=== PATIENT | female | born 1970 | race Caucasian/White ===

== ENCOUNTER → 2018-10-04 | Outpatient (CLI) | payer OTHER ==
[~2018-10-04] MED LIST: DICL75TA2 PO; OMEP40CA6 PO; TRAZ50TA66 PO
[2018-10-04 12:32] LABS: BASOPHILS % (AUTO) 1 % (0-1); EOSINOPHILS % (AUTO) 5 % (1-7); LYMPHOCYTES # (AUTO) 3.23 x10^3/uL (1-3.4); LYMPHOCYTES % (AUTO) 29 % (22-44); MD NO; MEAN CORPUSCULAR HEMOGLOBIN 27.6 pg (27.0-34.8); MEAN CORPUSCULAR HGB CONC 33.1 g/dL (32.4-35.8); MEAN CORPUSCULAR VOLUME 83.3 fL (80-100); MONOCYTES # (AUTO) 0.65 x10^3/uL (0.2-0.8); MONOCYTES % (AUTO) 6 % (2-9); NEUTROPHILS # (AUTO) 6.53 x10^3/uL (1.8-6.8); NEUTROPHILS % (AUTO) 59 % (42-75); PLATELET COUNT 264 x10^3/uL (130-400); RED BLOOD COUNT 5.29 x10^6/uL (3.82-5.3); RED CELL DISTRIBUTION WIDTH 16.2 % (9.6-15.2)
[2018-10-04 12:36] LABS: ANION GAP 6 mmol/L (5-15); CALCIUM 8.5 mg/dL (8.5-10.1); CHLORIDE 107 mmol/L (98-107); CREATININE 0.71 mg/dL (0.55-1.02)
[2018-10-04 13:12] LABS: HEMOGLOBIN A1C 5.8 % (4.2-6.3)
[2018-10-04 13:21] LABS: INTERNATIONAL NORMALIZED RATIO 0.99 (0.93-1.1); PROTHROMBIN TIME 10.5 Seconds (9.6-11.5)
== END | disposition home or self-care (01) ==
LOC: STAR 11:18
PROVIDERS: ATTEND Orthopaedic Surgery
DX: M17.12 Unilateral primary osteoarthritis, left knee (principal); Z47.1 Aftercare following joint replacement surgery
CPT/HCPCS: 36415; 80048; 83036; 85025; 85610; 85730; 87081

== ENCOUNTER 2018-10-13 10:12 | Inpatient (IN) | payer OTHER ==
[~2018-10-13] VITALS: Ht 160 cm; Wt 125.0 kg
[2018-10-13] MEDS: NS + 20MEQ KCL 1,000 ML IV SCH ×2 (06:35→22:00)
[2018-10-13] MEDS: CEFAZOLIN PMX 2GM/50ML 50 ML IVPB SCH ×2 (07:00→15:00)
[2018-10-13] MEDS: OMEPRAZOLE 20 MG CAPSULE.DR PO SCH ×2 (09:00→21:00)
[2018-10-13] MEDS: DOCUSATE 100 MG CAPSULE PO SCH ×2 (09:00→21:00)
[~2018-10-13 10:12] MED LIST changes: +ACETAMINOPHEN 650 MG/20.3 ML UDC PO PRN; +BISACODYL 10 MG SUPP PR PRN; -DICL75TA2 PO; +DICL75TA3 PO; +DIPHENHYDRAMINE 25 MG CAPSULE PO PRN; +HYDROcodone/APAP 5/325 TABLET PO PRN; +HYDROmorphone 2 MG/ML, 1ML IV PRN; +MAGNESIUM HYDROXIDE 8%, 30ML UDC PO PRN; +ONDANSETRON 2MG/ML, 2ML IV PRN; +ONDANSETRON 4 MG TABLET PO PRN; +SCOPOLAMINE PATCH, 1.5MG PATCH.TD72 TD ONE; +SENNA/DOCUSATE TABLET PO PRN; +ZOLPIDEM 5MG TABLET PO PRN
[2018-10-13] MEDS ORDERED: MIDAZOLAM 1 MG/ML, 2ML ONE (10:19)
[2018-10-13] MEDS ORDERED: FENTANYL PF 250 MCG/5ML ONE (10:19)
[2018-10-13] MEDS ORDERED: LACTATED RINGERS 1,000 ML IV SCH (10:22)
[2018-10-13] MEDS ORDERED: DEXAMETHASONE 4 MG/ML, 1ML ONE (10:23)
[2018-10-13] MEDS ORDERED: NEOSTIGMINE 1 MG/ML, 10ML ONE (10:23)
[2018-10-13] MEDS ORDERED: GLYCOPYRROLATE 0.2MG/1ML, 5ML ONE (10:23)
[2018-10-13] MEDS ORDERED: PROPOFOL 10 MG/ML, 20ML ONE (10:23)
[2018-10-13] MEDS ORDERED: ROCURONIUM 10MG/ML,5ML ONE (10:23)
[2018-10-13] MEDS ORDERED: CEFAZOLIN 1,000 MG ONE ×2 (10:23→11:47)
[2018-10-13] MEDS ORDERED: ONDANSETRON 2MG/ML, 2ML ONE (10:23)
[2018-10-13] MEDS ORDERED: ACETAMINOPHEN 500 MG TABLET PO ONE (11:00)
[2018-10-13] MEDS ORDERED: GABAPENTIN 300 MG CAPSULE PO ONE (11:00)
[2018-10-13] MEDS ORDERED: KETOROLAC 60 MG/2 ML ONE (11:06)
[2018-10-13] MEDS ORDERED: TRANEXAMIC ACID 100 MG/ML, 10ML ONE ×3 (11:06→12:06)
[2018-10-13] MEDS ORDERED: SODIUM CHLORIDE 0.9% 100 ML ONE (11:06)
[2018-10-13] MEDS ORDERED: ROPIvacaine/PF 0.5%, 30 ML ONE ×2 (11:06→11:37)
[2018-10-13] MEDS ORDERED: VANCOMYCIN 1,000 MG ONE (11:06)
[2018-10-13] MEDS ORDERED: EPINEPHRINE 1 MG/ML, 1ML ONE (11:07)
[2018-10-13 11:22] VITALS: BP 136/81
[2018-10-13] MEDS ORDERED: SCOPOLAMINE PATCH, 1.5MG PATCH.TD72 TD ONE ×2 (11:30)
[2018-10-13] MEDS: OXYcodone IR 5MG TABLET PO PRN ×2 (11:30→23:30)
[2018-10-13] MEDS ORDERED: hydrALAzine 20 MG/ML, 1ML ONE (11:47)
[2018-10-13] MEDS ORDERED: OXYcodone 5 MG/5 ML ORAL.SOL UDC PO PRN (12:00)
[2018-10-13] MEDS ORDERED: HYDROmorphone 2 MG/ML, 1ML IVPush PRN (12:00)
[2018-10-13] MEDS ORDERED: ONDANSETRON 2MG/ML, 2ML IV PRN (12:00)
[2018-10-13] MEDS ORDERED: MEPERIDINE/PF 25MG/0.5ML IVPush PRN (12:00)
[2018-10-13] MEDS ORDERED: ONDANSETRON ODT 8 MG PO PRN (12:00)
[2018-10-13] MEDS ORDERED: LABETALOL 5MG/ML, 20ML IV PRN (12:00)
[2018-10-13] MEDS ORDERED: PROMETHAZINE 12.5 MG SUPP PR PRN (12:00)
[2018-10-13] MEDS ORDERED: PROMETHAZINE 25 MG SUPP PR PRN (12:00)
[2018-10-13] MEDS ORDERED: PROMETHAZINE 25 MG/ML, 1ML IM PRN ×2 (12:00)
[2018-10-13] MEDS ORDERED: PROMETHAZINE 25 MG/ML, 1ML IV PRN (12:00)
[2018-10-13] MEDS ORDERED: MORPHINE SULFATE 4 MG/ML, 1ML IVPush PRN (12:00)
[2018-10-13] MEDS ORDERED: hydrALAzine 20 MG/ML, 1ML IV PRN (12:00)
[2018-10-13] MEDS ORDERED: FENTANYL PF 100 MCG/2ML ONE ×2 (12:20→13:55)
[2018-10-13] MEDS ORDERED: ALBUTEROL HFA 90 MCG/SPRAY ONE (12:54)
[2018-10-13] MEDS ORDERED: PROMETHAZINE 25 MG/ML, 1ML ONE (13:20)
[2018-10-13] MEDS ORDERED: HALOPERIDOL 5 MG/ML ONE (13:34)
[2018-10-13] MEDS: HALOPERIDOL 5 MG/ML IV PRN ×2 (13:35→15:36)
[2018-10-13] MEDS: FENTANYL PF 100 MCG/2ML IV PRN ×4 (14:00→15:36)
[2018-10-13 17:00] VITALS: BP 136/75
[2018-10-13] MEDS: ASPIRIN 81 MG TABLET EC PO SCH (17:59)
[2018-10-13 19:31] VITALS: BP 124/75
[2018-10-13] MEDS ORDERED: TRAZODONE 50MG TABLET PO SCH (21:00)
[2018-10-14 01:30] VITALS: BP 101/63
[2018-10-14] MEDS: ASPIRIN 81 MG TABLET EC PO SCH (06:00)
[2018-10-14] MEDS ORDERED: DEXAMETHASONE 4 MG/ML, 1ML IVPush SCH (06:00)
[2018-10-14 08:32] VITALS: BP 119/72
[2018-10-14] MEDS: OMEPRAZOLE 20 MG CAPSULE.DR PO SCH (09:22)
[2018-10-14] MEDS: DOCUSATE 100 MG CAPSULE PO SCH (09:22)
[2018-10-14] MEDS: OXYcodone IR 5MG TABLET PO PRN (09:22)
[2018-10-14] MEDS ORDERED: OXYC5TAB2 PO (09:58)
[2018-10-14] MEDS ORDERED: ONDA4TAB7 PO (10:00)
[2018-10-14] MEDS ORDERED: MELO7.5T31 PO (10:00)
== END 2018-10-14 11:00 | disposition home or self-care (01) | DRG 470 ==
LOC: OUT 10:12 → 4NOR 15:07 → OUT 22:57 → 4NOR 22:57
PROVIDERS: ADMIT Orthopaedic Surgery; ATTEND Orthopaedic Surgery
PROC: 3E0T3BZ Introduction of Anesthetic Agent into Peripheral Nerves and Plexi, Percutaneous Approach (ICD-10-PCS; 2018-10-13)
PROC: 0SRD069 Replacement of Left Knee Joint with Oxidized Zirconium on Polyethylene Synthetic Substitute, Cemented, Open Approach (ICD-10-PCS; principal; 2018-10-13 13:00)
DX: M17.12 Unilateral primary osteoarthritis, left knee (principal); Z68.42 Body mass index [BMI] 45.0-49.9, adult; K21.9 Gastro-esophageal reflux disease without esophagitis; E66.01 Morbid (severe) obesity due to excess calories; Z88.2 Allergy status to sulfonamides
CPT/HCPCS: 36415; J3490; 85014; 85018; C1713; G0378; J0171; J0690; J1100; J1170; J1885; J2250; J2405; J2550; J2704; J2710; J2795; J3010; J3370; C1776; J0360; J1630; J7120

== ENCOUNTER → 2018-11-02 | Outpatient (CLI) | payer OTHER ==
[~2018-11-02] MED LIST changes: -ACETAMINOPHEN 650 MG/20.3 ML UDC PO PRN; -BISACODYL 10 MG SUPP PR PRN; -DIPHENHYDRAMINE 25 MG CAPSULE PO PRN; -HYDROcodone/APAP 5/325 TABLET PO PRN; -HYDROmorphone 2 MG/ML, 1ML IV PRN; -MAGNESIUM HYDROXIDE 8%, 30ML UDC PO PRN; +MELO7.5T31 PO; +ONDA4TAB7 PO; -ONDANSETRON 2MG/ML, 2ML IV PRN; -ONDANSETRON 4 MG TABLET PO PRN; +OXYC5TAB2 PO; -SCOPOLAMINE PATCH, 1.5MG PATCH.TD72 TD ONE; -SENNA/DOCUSATE TABLET PO PRN; -ZOLPIDEM 5MG TABLET PO PRN
== END | disposition home or self-care (01) ==
LOC: RAD 15:29
PROVIDERS: ATTEND Orthopaedic Surgery
DX: M79.89 Other specified soft tissue disorders (principal); M79.662 Pain in left lower leg; Z96.652 Presence of left artificial knee joint

== ENCOUNTER 2018-12-24 11:29 | Emergency (ER) | payer OTHER ==
[~2018-12-24] VITALS: Ht 160 cm; Wt 123.8 kg
--- NOTE | 2018-12-24 11:32 | NUR ---
PT IN RESTROOM.
[2018-12-24] MEDS ORDERED: ONDANSETRON 2MG/ML, 2ML IVPush ONE (12:00)
[2018-12-24] MEDS ORDERED: MORPHINE SULFATE 4 MG/ML, 1ML IVPush PRN (12:00)
[2018-12-24] MEDS ORDERED: SODIUM CHLORIDE FLUSH 10ML SYR IVF ONE (12:00)
[2018-12-24] MEDS ORDERED: MORPHINE SULFATE 4 MG/ML, 1ML ONE (12:10)
[2018-12-24] MEDS ORDERED: ONDANSETRON 2MG/ML, 2ML ONE (12:10)
[2018-12-24 12:21] LABS: BASOPHILS # (AUTO) 0.01 x10^3/uL (0-0.1); BASOPHILS % (AUTO) 0 % (0-1); EOSINOPHILS # (AUTO) 0.13 x10^3/uL (0-0.4); EOSINOPHILS % (AUTO) 1 % (1-7); LYMPHOCYTES # (AUTO) 1.67 x10^3/uL (1-3.4); LYMPHOCYTES % (AUTO) 12 % (22-44); MD NO; MEAN CORPUSCULAR HGB CONC 33.8 g/dL (32.4-35.8); MEAN CORPUSCULAR VOLUME 82.7 fL (80-100); MEAN PLATELET VOLUME 8.8 fL (7.4-10.4); MONOCYTES # (AUTO) 0.21 x10^3/uL (0.2-0.8); MONOCYTES % (AUTO) 2 % (2-9); NEUTROPHILS # (AUTO) 11.44 x10^3/uL (1.8-6.8); NEUTROPHILS % (AUTO) 85 % (42-75); PLATELET COUNT 254 x10^3/uL (130-400); RED BLOOD COUNT 5.05 x10^6/uL (3.82-5.3); RED CELL DISTRIBUTION WIDTH 15.1 % (9.6-15.2)
[2018-12-24 12:29] LABS: ALBUMIN 3.8 g/dL (3.4-5.0); ANION GAP 8 mmol/L (5-15); CHLORIDE 107 mmol/L (98-107); CREATININE 0.84 mg/dL (0.55-1.02)
[2018-12-24 12:34] LABS: ALANINE AMINOTRANSFERASE 38 U/L (12-78); ALKALINE PHOSPHATASE 125 U/L (45-117); BILIRUBIN,TOTAL 0.7 mg/dL (0.2-1.0); TOTAL PROTEIN 7.9 g/dL (6.4-8.2)
[2018-12-24 12:40] VITALS: BP 144/110
--- NOTE | 2018-12-24 12:43 | NUR ---
TASK RN- PT AMBULATRORY TO BATHOOM WITH STEADY GAIT. BACK TO ROOM. RESTIG ON DESTINEY. PRESENTS TO ED FOR R SIDED ABD AND FLANK PAIN STARTING THIS AM. IV ACCESS ESTABLISHED AND MEDICATED PER ORDR. SPO2 AND NIBP MONITORING IN PLACE. VSS. FRIEND AT BEDSIDE. CALL LIGHT IN REACH. AWAITING PT TO GO TO CT. URINE SENT TO LAB. SBAR REPORT TO GLENN GOMES.
[2018-12-24 13:08] LABS: MICROSCOPIC INDICATED
--- NOTE | 2018-12-24 13:08 | NUR ---
Pt transported on gurney to CT. Pt not in room at this time.
[2018-12-24] MEDS ORDERED: KETOROLAC 30 MG/1 ML ONE (13:24)
[2018-12-24 13:27] LABS: CULTURE INDICATED? NO
[2018-12-24] MEDS ORDERED: KETOROLAC 30 MG/1 ML IVPush ONE (13:30)
== END 2018-12-24 14:42 | disposition home or self-care (01) ==
LOC: ED 12:09
DX: M54.5 Low back pain (principal); N13.2 Hydronephrosis with renal and ureteral calculous obstruction; R31.9 Hematuria, unspecified; Z87.442 Personal history of urinary calculi
CPT/HCPCS: 36415; 74176; 80053; 81001; 83690; 84703; 85025; 96374; 96375; 99284; J1885; J2405

== ENCOUNTER 2019-03-30 21:37 | Emergency (ER) | payer OTHER ==
[~2019-03-30] VITALS: Ht 160 cm; Wt 125.6 kg
[2019-03-30 22:30] LABS: MICROSCOPIC AUTO
[2019-03-30 22:40] LABS: CULTURE INDICATED? YES
[2019-03-30] MEDS ORDERED: KETOROLAC 30 MG/1 ML IM ONE (23:00)
[2019-03-30] MEDS ORDERED: KETOROLAC 60 MG/2 ML ONE (23:11)
[2019-03-31 00:14] VITALS: BP 120/73
== END 2019-03-31 00:16 | disposition home or self-care (01) ==
LOC: ED 22:50
DX: N13.2 Hydronephrosis with renal and ureteral calculous obstruction (principal); R31.9 Hematuria, unspecified
CPT/HCPCS: 74176; 81001; 87086; 96372; 99284; J1885

== ENCOUNTER 2021-01-30 16:12 | Emergency (ER) | payer OTHER ==
[~2021-01-30] VITALS: Ht 160 cm; Wt 122.0 kg
[~2021-01-30 16:12] MED LIST changes: +OMEP40CA42 PO; -OMEP40CA6 PO
[2021-01-30 18:06] VITALS: BP 196/91
[2021-01-30 18:18] LABS: ALANINE AMINOTRANSFERASE 32 U/L (12-78); ALBUMIN 3.8 g/dL (3.4-5.0); ANION GAP 7 mmol/L (5-15); CALCIUM 9.3 mg/dL (8.5-10.1); CHLORIDE 110 mmol/L (98-107); CREATININE 1.19 mg/dL (0.55-1.02)
[2021-01-30 18:20] LABS: ALKALINE PHOSPHATASE 117 U/L (45-117); BILIRUBIN,TOTAL 0.7 mg/dL (0.2-1.0); MEAN CORPUSCULAR HEMOGLOBIN 27.4 pg (27.0-34.8); MEAN CORPUSCULAR HGB CONC 33.2 g/dL (32.4-35.8); MEAN PLATELET VOLUME 8.6 fL (7.4-10.4); PLATELET COUNT 259 x10^3/uL (130-400); RED BLOOD COUNT 5.08 x10^6/uL (3.82-5.3); RED CELL DISTRIBUTION WIDTH 15.4 % (9.6-15.2)
[2021-01-30 18:24] LABS: MD YES
[2021-01-30] MEDS ORDERED: ONDANSETRON 2MG/ML, 2ML IVPush ONE (18:30)
[2021-01-30] MEDS ORDERED: MORPHINE SULFATE 4 MG/ML, 1ML IVPush PRN (18:30)
[2021-01-30] MEDS ORDERED: SODIUM CHLORIDE FLUSH 10ML SYR IVF ONE (18:30)
[2021-01-30] MEDS ORDERED: KETOROLAC 30 MG/1 ML IVPush ONE (18:30)
--- NOTE | 2021-01-30 18:40 | NUR ---
PT AMBULATED TO THE BR W/ A STEADY GAIT. URINE COLLECTED AND SENT TO LAB. UNABLE TO START PIV X2. VEE GOMES AT BEDSIDE FOR ATTEMPT.
[2021-01-30 18:44] LABS: BAND#(MANUAL) 0.36 x10^3/uL; BANDS%(MANUAL) 2 % (0-7); BASOS#(MANUAL) 0.18 x10^3/uL (0-0.1); BASOS% (MANUAL) 1 % (0-1); LYMPH#(MANUAL) 1.81 x10^3/uL (1-3.4); LYMPHS% (MANUAL) 10 % (22-44); MONOS#(MANUAL) 0.91 x10^3/uL (0.3-2.7); MONOS% (MANUAL) 5 % (2-9); SEG#(MANUAL) 14.84 x10^3/uL (1.8-6.8); SEGS% (MANUAL) 82 % (42-75)
[2021-01-30 18:45] LABS: <PLATELET ESTIMATE> ADEQUATE; <PLT MORPHOLOGY> NORMAL PLT MORPH; <RBC MORPHOLOGY> NORMAL
[2021-01-30 18:50] LABS: MICROSCOPIC INDICATED
--- NOTE | 2021-01-30 19:00 | NUR ---
VEE GOMES UNABLE TO START PIV, REPORT TO EMELIA GOMES. AWARE OF POC FOR PIV AND MEDS. PT RESTING ON GURNEY W/ CALL LIGHT IN REACH AND FAMILY AT BEDSIDE. RESP EVEN AND UNLABORED, JAD.
[2021-01-30] MEDS ORDERED: KETOROLAC 30 MG/1 ML ONE (19:06)
[2021-01-30] MEDS ORDERED: ONDANSETRON 2MG/ML, 2ML ONE (19:06)
[2021-01-30] MEDS ORDERED: MORPHINE SULFATE 4 MG/ML, 1ML ONE (19:07)
--- NOTE | 2021-01-30 19:13 | NUR ---
TASK RN: PIV PLACED, THEN MEDICATED PER EMAR FOR LEFT FLANK PAIN AT 10/10.
[2021-01-30] MEDS ORDERED: CEFTRIAXONE 1,000 MG in DEXTROSE 5% 50 ML IVPB ONE (19:30)
--- NOTE | 2021-01-30 20:05 | NUR ---
PT RESTING COMFORTABLY IN BED. IV INTACT, ANTIBIOTICS HUNG TO RUN OVER 30 MIN. PT CLAM AND COOPERATIVE.
--- NOTE | 2021-01-30 20:24 | NUR ---
IV ANTIBIOTICS INFUSED. PT CALM AND IN NO DISCOMFORT AT THIS TIME. NEW ORDERS RECEIVED.
[2021-01-30] MEDS ORDERED: HYDROmorphone 1 MG/ML, 1ML INJ IV ONE (20:30)
[2021-01-30] MEDS ORDERED: HYDROmorphone 1 MG/ML, 1ML INJ ONE (20:46)
--- NOTE | 2021-01-30 20:55 | NUR ---
TASK RN: URINE COLLECTED VIA STRAIGHT CATH AND TAKEN TO LAB. REPORT BACK TO PRIMARY RN.
[2021-01-30 21:07] LABS: MICROSCOPIC AUTO
== END 2021-01-30 22:11 | disposition home or self-care (01) ==
LOC: ED 21:06
DX: N13.2 Hydronephrosis with renal and ureteral calculous obstruction (principal); Z88.2 Allergy status to sulfonamides
CPT/HCPCS: 36415; 74018; 74176; 76770; 80053; 81001; 85025; 87086; 96365; 96375; 99285; J0696; J1170; J1885; J2270; J2405